=== PATIENT | male | born 1940 | race Caucasian/White ===

== ENCOUNTER 2017-10-03 09:41 | Emergency (ER) | payer BC, MEDICARE ==
[~2017-10-03] VITALS: Ht 172.7 cm; Wt 92.0 kg
[2017-10-03 09:43] VITALS: BP 156/72; PULSE 88; RESP 20; TEMP 97.6; O2SAT 97
[2017-10-03 09:57] VITALS: BP 167/78; PULSE 86; RESP 18; O2SAT 96
[2017-10-03] MEDS ORDERED: CLINDAMYCIN 600 MG/NS PREMIX 50 ML IV ONE (10:00)
[2017-10-03] MEDS ORDERED: FINA5TAB2 PO (10:04)
[2017-10-03] MEDS ORDERED: ASPI-516 CHEW (10:04)
[2017-10-03] MEDS ORDERED: TAMS0.4C4 (10:04)
[2017-10-03] MEDS ORDERED: ATOR40TA16 PO (10:04)
[2017-10-03] MEDS ORDERED: LOSA100T PO (10:04)
--- NOTE | 2017-10-03 10:09 | PD ---
HPI Chief Complaint: Edema Time Seen by Provider: 09:51 Travel History International Travel<30 days: No Contact w/Intl Traveler<30days: No Traveled to known affect area: No History of Present Illness HPI The patient is a 76-year-old male who presents to the emergency department for right lower extremity edema and erythema. The patient has a history of bilateral lower extremity edema which she attributes to a fall while sitting in the [employer] several years ago. The patient does note he has edema to both lower extremities, however, now notes increasing swelling and redness to the right leg. The patient thinks she was stung in the right shoulder yesterday by a wasp while mowing the lawn, also states he was working around the house yesterday when he noticed his right leg was swollen and painful. He does note some mild erythema over the right lower extremity. He denies any fever, chills, or sweats. Symptoms are moderate. He denies any known history of DVT. The patient's primary physician is Dr. Concepcion. [facility] Past Medical History Atrial Fibrillation: Yes Cardiac Catheterization: Yes Cardiovascular Problems: Yes (A-FIB) High Cholesterol: Yes Diminished Hearing: No Genitourinary: Yes (BPH) Hypertension: Yes Tetanus Vaccination: < 5 Years Influenza Vaccination: Yes ?: Not Past Surgical History Appendectomy: Yes Cardiac Surgery: Yes (cardiac ablation) Social History Alcohol Use: No Tobacco Use: No Substance Use: No Allergies-Medications (Allergen,Severity, Reaction): Coded Allergies: No Known Allergies (Unverified , 10/03/17) Reported Meds & Prescriptions Reported Meds & Active Scripts Active Reported Tamsulosin (Tamsulosin HCl) 0.4 Mg Cap 0.4 Mg HS Atorvastatin (Atorvastatin Calcium) 40 Mg Tab 40 Mg PO HS Finasteride 5 Mg Tab 5 Mg PO DAILY Do not crush. Losartan (Losartan Potassium) 100 Mg Tab 100 Mg PO DAILY Aspirin 81 Mg Chew 81 Mg CHEW DAILY Review of Systems Except as stated in HPI: all other systems reviewed are Neg General / Constitutional: No: Fever, Chills Cardiovascular: No: Chest Pain or Discomfort Respiratory: No: Shortness of Breath Gastrointestinal: No: Nausea, Vomiting Musculoskeletal: Positive: Edema, Pain Skin: Positive Other (As noted in the history of present on) Physical Exam Narrative GENERAL: Awake, alert, pleasant 76-year-old male who appears his stated age and is in no acute respiratory distress. SKIN: Focused skin assessment warm/dry. HEAD: Atraumatic. Normocephalic. EYES: No injection or drainage per ENT: No nasal bleeding or discharge. Mucous membranes pink and moist. NECK: Trachea midline. No JVD. CARDIOVASCULAR: Regular rate and rhythm. No murmur appreciated. RESPIRATORY: No accessory muscle use. Clear to auscultation. Breath sounds equal bilaterally. MUSCULOSKELETAL: Both lower extremities show pitting edema. The patient does have mild erythema just above the sock line to the mid right calf that is in a circumferential fashion. Warmth to the touch. No visible open lesion or drainage. NEUROLOGICAL: Awake and alert. No obvious cranial nerve deficits. Motor grossly within normal limits. Normal speech. PSYCHIATRIC: Appropriate mood and affect; insight and judgment normal. Data Data Last Documented VS Vital Signs Date Time Temp Pulse Resp B/P (MAP) Pulse Ox O2 Delivery O2 Flow Rate FiO2 10/03/17 09:57 86 18 167/78 (107) 96 Room Air 10/03/17 09:43 97.6 Orders Orders Us Leg Venous Doppler (10/03/17 ) Complete Blood Count With Diff (10/03/17 09:59) Basic Metabolic Panel (Bmp) (10/03/17 09:59) Lactic Acid (10/03/17 09:59) Clindamycin 600 Mg/Ns Premix (Cleocin 60 (10/03/17 10:00) Ed Discharge Order (10/03/17 12:09) Labs Laboratory Tests Test 10/03/17 10:04 White Blood Count 13.5 TH/MM3 Red Blood Count 5.09 MIL/MM3 Hemoglobin 15.8 GM/DL Hematocrit 46.5 % Mean Corpuscular Volume 91.3 FL Mean Corpuscular Hemoglobin 31.1 PG Mean Corpuscular Hemoglobin Concent 34.1 % Red Cell Distribution Width 14.0 % Platelet Count 170 TH/MM3 Mean Platelet Volume 10.1 FL Neutrophils (%) (Auto) 78.2 % Lymphocytes (%) (Auto) 12.1 % Monocytes (%) (Auto) 9.2 % Eosinophils (%) (Auto) 0.3 % Basophils (%) (Auto) 0.2 % Neutrophils # (Auto) 10.6 TH/MM3 Lymphocytes # (Auto) 1.6 TH/MM3 Monocytes # (Auto) 1.3 TH/MM3 Eosinophils # (Auto) 0.0 TH/MM3 Basophils # (Auto) 0.0 TH/MM3 CBC Comment DIFF FINAL Differential Comment Blood Urea Nitrogen 20 MG/DL Creatinine 1.13 MG/DL Random Glucose 96 MG/DL Calcium Level 9.1 MG/DL Sodium Level 134 MEQ/L Potassium Level 5.1 MEQ/L Chloride Level 101 MEQ/L Carbon Dioxide Level 23.2 MEQ/L Anion Gap 10 MEQ/L Estimat Glomerular Filtration Rate 63 ML/MIN Lactic Acid Level 1.7 mmol/L MDM Medical Decision Making Medical Screen Exam Complete: Yes Emergency Medical Condition: Yes Medical Record Reviewed: Yes Interpretation(s) Last Impressions Lower Extremity Ultrasound 10/03/17 0000 Signed Impressions: CONCLUSION: 1. No evidence for DVT. Laboratory Tests Test 10/03/17 10:04 White Blood Count 13.5 TH/MM3 Red Blood Count 5.09 MIL/MM3 Hemoglobin 15.8 GM/DL Hematocrit 46.5 % Mean Corpuscular Volume 91.3 FL Mean Corpuscular Hemoglobin 31.1 PG Mean Corpuscular Hemoglobin Concent 34.1 % Red Cell Distribution Width 14.0 % Platelet Count 170 TH/MM3 Mean Platelet Volume 10.1 FL Neutrophils (%) (Auto) 78.2 % Lymphocytes (%) (Auto) 12.1 % Monocytes (%) (Auto) 9.2 % Eosinophils (%) (Auto) 0.3 % Basophils (%) (Auto) 0.2 % Neutrophils # (Auto) 10.6 TH/MM3 Lymphocytes # (Auto) 1.6 TH/MM3 Monocytes # (Auto) 1.3 TH/MM3 Eosinophils # (Auto) 0.0 TH/MM3 Basophils # (Auto) 0.0 TH/MM3 CBC Comment DIFF FINAL Differential Comment Blood Urea Nitrogen 20 MG/DL Creatinine 1.13 MG/DL Random Glucose 96 MG/DL Calcium Level 9.1 MG/DL Sodium Level 134 MEQ/L Potassium Level 5.1 MEQ/L Chloride Level 101 MEQ/L Carbon Dioxide Level 23.2 MEQ/L Anion Gap 10 MEQ/L Estimat Glomerular Filtration Rate 63 ML/MIN Lactic Acid Level 1.7 mmol/L Differential Diagnosis Differential diagnosis includes cellulitis, dependent edema, DVT, hypoalbuminemia, congestive heart failure, lymphedema, volume overload, acute renal failure. Narrative Course IV was established, labs are drawn and sent, the patient was placed on cardiac telemetry monitoring and continuous pulse oximetry monitoring. Ultrasound of the right lower extremity was ordered to rule out DVT. The patient was administered clindamycin 600 mg intravenously. The patient's white count is 13.5, however, patient is afebrile. Lactic acid is within normal limits. Ultrasound was negative for DVT. The patient's erythematous right lower extremity was marked with a surgical marking pen. The patient is advised to follow-up with his primary physician in 48-72 hours to evaluate for improvement of the cellulitis. He is also advised to wear [place] hose and elevate his legs to help with dependent edema. Return if symptoms worsen or progress. Diagnosis Primary Impression: Dependent edema Additional Impression: Cellulitis Qualified Codes: L03.115 - Cellulitis of right lower limb Patient Instructions: General Instructions Additional Instructions: Medication as directed. Follow-up with your primary physician. Elevate legs. Return if symptoms worsen or progress. Please provide the patient a copy of his ultrasound results and lab results at discharge. Med/Other Pt SpecificInfo: Prescription(s) given Scripts Clindamycin (Cleocin) 150 Mg Cap 150 MG PO Q6H for Infection for 10 Days, #40 CAP 0 Refills Prov: Tacho Dodd MD 10/03/17 Disposition: 01 DISCHARGE HOME Condition: Stable Tacho Dodd MD Oct 03, 2017 10:09
[2017-10-03 10:37] LABS: AUTOMATED NEUTROPHIL # 10.6 TH/MM3 (1.8-7.7); BASOPHIL % 0.2 % (0.0-2.0); EOSINOPHIL % 0.3 % (0.0-4.0); HEMATOCRIT 46.5 % (39.0-51.0); HEMOGLOBIN 15.8 GM/DL (13.0-17.0); LYMPH % 12.1 % (9.0-44.0); LYMPHOCYTE # 1.6 TH/MM3 (1.0-4.8); MEAN CELL VOLUME 91.3 FL (80.0-100.0); MEAN CORPUSCULAR HEMOGLOBIN 31.1 PG (27.0-34.0); MEAN CORPUSCULAR HGB CONC 34.1 % (32.0-36.0); MEAN PLATELET VOLUME 10.1 FL (7.0-11.0); MONO % 9.2 % (0.0-8.0); MONOCYTE # 1.3 TH/MM3 (0-0.9); NEUT % 78.2 % (16.0-70.0); PLATELET COUNT 170 TH/MM3 (150-450); RED BLOOD COUNT 5.09 MIL/MM3 (4.50-5.90); WHITE BLOOD COUNT 13.5 TH/MM3 (4.0-11.0)
--- NOTE | 2017-10-03 10:56 | RADRPT ---
EXAM DATE: 10/03/2017 10:48 AM EDT AGE/SEX: 76 years / Male INDICATIONS: Right leg pain and swelling. CLINICAL DATA: This is the patient's initial encounter. Patient reports that signs and symptoms have been present for 1 day and indicates a pain score of 4/10. MEDICAL/SURGICAL HISTORY: Hypercholesterolemia. Hypertension. A-fib. BPH. Appendectomy. Cardi ac catheterization. COMPARISON: No prior exams available for comparison. TECHNIQUE: Venous ultrasound of both lower extremities was performed from the inguinal ligament to t he proximal calf. Real-time, color Doppler and spectral tracing, compression and augmentation techni ques were used. FINDINGS: There is normal compressibility of the deep venous system from the inguinal region to the proximal ca lf. No echogenic clot is seen in the lumen of the common femoral, femoral, popliteal, and posterior tibial veins. There is a normal response of the venous system to proximal and distal augmentation an d respiration. CONCLUSION: 1. No evidence for DVT. Electronically signed by: Flako Gordillo MD 10/03/2017 10:55 AM EDT
[2017-10-03 11:00] LABS: BICARBONATE 23.2 MEQ/L (21.0-32.0); CALCIUM 9.1 MG/DL (8.5-10.1); CREATININE 1.13 MG/DL (0.60-1.30)
[2017-10-03] MEDS ORDERED: CLIN150 PO (12:13)
== END 2017-10-03 13:20 | disposition home or self-care (01) ==
LOC: NEPE 09:41
DX: R60.0 Localized edema (principal); L03.115 Cellulitis of right lower limb; I10 Essential (primary) hypertension; I48.91 Unspecified atrial fibrillation; E78.00 Pure hypercholesterolemia, unspecified; N40.0 Benign prostatic hyperplasia without lower urinary tract symptoms
CPT/HCPCS: 80048; 83605; 85025; 93971; 96374